=== PATIENT | male | born 1990 | race Caucasian/White ===

== ENCOUNTER 2024-02-05 21:08 | Inpatient (IN) | payer MEDICARE, SELFPAY ==
--- NOTE | ~2024-02-05 | XR_ITS ---
EXAMINATION: XR HAND/WRIST, LEFT CLINICAL INFORMATION: Ann/cut to dorsal radial aspect of the hand. COMPARISON: None available. TECHNIQUE: Four views of the left hand and wrist. FINDINGS: Avulsion fracture along the dorsal aspect of the base of the distal phalanx of the fifth digit with intra-articular extension, mild radial and ventral angulation of the distal phalanx and surrounding soft tissue swelling. Otherwise, unremarkable. XR/XR hand wrist LT IMPRESSION: Avulsion fracture of the distal phalanx of the fifth digit as above. Electronically signed by: Berenice Castano MD 02/06/2024 03:38 PM EDT
[2024-02-05 21:09] VITALS: BP 136/86; PULSE 94; RESP 18; TEMP 36.7; O2SAT 94; BMI 28.6
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
[2024-02-05 21:33] LABS: Basophils Percent Auto 0.3 % (0-2); Eosinophils Absolute Auto 0.1 X10*3/uL (0.0-0.4); Eosinophils Percent Auto 0.5 % (0-4); Hemoglobin 16.1 g/dl (14.0-18.0); Imm Gran Abs Auto 0.03 X10*3/uL (0.00-0.03); Imm Gran Pct Auto 0.2 % (0.0-0.4); Lymphocytes Percent Auto 22.9 % (20-40); MANUAL DIFF FLAG NO; Mean Corpuscular Hemoglobin 31.8 pg (27.0-33.0); Mean Corpuscular Volume 90.9 fL (80.0-98.0); Monocytes Absolute Auto 0.7 X10*3/uL (0.1-1.2); Monocytes Percent Auto 5.6 % (2-11); Neutrophils Absolute Auto 9.3 x10*3/uL (2.0-8.3); Neutrophils Percent Auto 70.5 % (45-73); Platelet Count 340 X10*3/uL (160-400); Red Blood Count 5.06 X10*6/uL (4.60-5.80); Red Cell Distribution Width 14.2 % (11.0-16.0); White Blood Count 13.1 X10*3/uL (4.8-10.8)
[2024-02-05 21:50] LABS: Alanine Aminotransferase 85 U/L (0-40); Albumin Level 4.7 g/dL (3.5-5.0); Alkaline Phosphatase 114 U/L (39-117); Anion Gap 22 (12-20); Aspartate Amino Transferase 67 U/L (5-37); Bilirubin Total 0.7 mg/dL (0.0-1.0); Blood Urea Nitrogen 11 mg/dL (9-16); Calcium 9.7 mg/dL (8.4-10.2); Carbon Dioxide 22 mmol/L (22-29); Chloride 103 mmol/L (96-108); Creatinine Clr Calc Pharmacy 131.4; Estimated Glomerular Filt Rate > 60; Ethanol 144 mg/dL; Glucose Random 70 mg/dL (60-115); Potassium 3.9 mmol/L (3.3-5.1); Sodium 143 mmol/L (135-145); Total Protein 7.3 g/dL (6.5-8.0)
--- NOTE | 2024-02-05 21:57 | MHC.EDTECH ---
Security did address change clerk with Pt and brought belongings to [facility] without communicating with RN or tech about belongings. This [facility], without documentation/Pt sticker in the binder. This tech asked Pt what he had with him, and Pt verbalized clothes, shoes, phone, [employer], wallet with 'some change' in it. Documented this in patient belongings. Maren RN also aware.
--- NOTE | 2024-02-05 21:57 | PC.NURSE ---
t/w went and introduced self to patient he states hes been on medicines but doesnty remember names and reports doesnt remember pharmacy. problems reflux and maybe high blood pressure
--- NOTE | 2024-02-05 22:02 | PC.NURSE ---
at this time security did not state what belongings pt had. belongings list completed per pt verbally.
[2024-02-05 22:05] LABS: Appearance Urine Cloudy; Color Urine Dark Yellow; Glucose Urine UA Negative (Negative); Leukocyte Esterase Urine Negative (Negative); Nitrite Urine Negative (Negative); PH 5.5 (5.0-9.0); Specific Gravity - Urine >= 1.030 (1.005-1.025); UMIC TRIGGER UACC YES; Urine Blood Negative (Negative); Urine Ketones 15 mg/dL (Negative); Urine Protein 30 (1+) mg/dL (Neg-Trace)
[2024-02-05 22:13] LABS: Amphetamine Screen Urine Not Detected (Not Detect); Barbiturates, Urine POSITIVE (Not Detect); Benzodiazepines Screen Urine POSITIVE (Not Detect); Buprenorphine Scr Not Detected (Not Detect); Cannabinoid Screen Urine POSITIVE (Not Detect); Cocaine Screen Urine Not Detected (Not Detect); Fentanyl, urine Not Detected (Not Detect); Methadone Screen, Urine Not Detected (Not Detect); Opiate Screen Urine Not Detected (Not Detect); Oxycodone Screen Urine Not Detected (Not Detect); Phencyclidine Screen Urine Not Detected (Not Detect)
[2024-02-05 22:20] LABS: Bacteria Urine None Seen (None Seen); Hyaline Casts Urine >20 /LPF (0-2); RBC Urine 0-2 /HPF (0-2); WBC Urine 0-5 /HPF (0-5)
--- NOTE | 2024-02-05 22:24 | MHC.EDTECH ---
pt was vigorously masturbating. pt states I've been outside a long time... rn aware.
--- NOTE | 2024-02-06 04:39 | ED_ITS ---
HPI - Psych General Chief Complaint: Psychiatric Symptoms Stated Complaint: ETOh, off schizo meds, cut on L hand Time Seen by Provider: 02/06/24 00:57 Source: patient Mode of arrival: EMS Limitations: no limitations History of Present Illness ED Provider: alfreda MCNEILL Narrative: Patient's history of schizophrenia was drinking alcohol feel depressed with SI superficial self inflicted wound on the left hand patient is homeless noncompliant to his medication Related Data Home Medications ?Medication ?Instructions ?Recorded ?Confirmed No Known Home Meds 02/05/24 02/05/24 Allergies Allergy/AdvReac Type Severity Reaction Status Date / Time No Known Allergies Allergy Verified 02/05/24 21:18 Review of Systems 2 Review of Systems: Yes all other systems are reviewed and are negative PMFSH Social History Social History Alcohol intake: current Smoked in Last 30 Days: No Use of substances other than those prescribed or required for medical reasons: No Do you have a plan to hurt others: No Plan Physical Exam 2 Vital Signs: Vital Signs: Last Vital Signs Temp 98.1 F 02/06/24 06:36 Pulse 97 02/06/24 06:36 Resp 18 02/06/24 06:36 BP 136/89 02/06/24 06:36 Pulse Ox 98 02/06/24 06:36 O2 Del Method Room Air 02/06/24 06:36 BMI result Body Mass Index 28.6 Appearance: Alert. Oriented X3. No acute distress. ETOH+ Eyes: PERRLA, No Nystagmus ENT: Pharynx normal. Oral Mucosa moist Neck: Normal inspection. Neck supple. CVS: Normal heart rate and rhythm. Pulses normal. Respiratory: No respiratory distress. Equal air entry bilateral, no wheezing/rales/rhonchi Abdomen: Soft and nontender. Bowel sounds are present, no mass palpable, no CVA tenderness Skin: Skin warm and dry. Normal skin color. Normal skin turgor. Extremities: No lower extremity edema. No calf tenderness superficial self- injury inflicted linear wound on the left hand at the base of the dorsum of the thumb no active bleeding psych: Unkept , says he is depressed and SI no hallucination or delusion Neuro: Oriented X 3. No motor deficit. No sensory deficit.No cerebellar signs , cranial nerves II-XII intact Medical Decision Making Medical Decision Making [facility] Narrative: Patient has schizoaffective disorder with alcohol use off medication will consult care team Lab Data [facility] Lab Attestation statement: I reviewed the patient's lab results. 02/05/24 21:28 02/05/24 21:28 Labs: Lab Results 02/05/24 02/05/24 Range/Units 21:28 21:58 WBC 13.1 H (4.8-10.8) X10*3/uL RBC 5.06 (4.60-5.80) X10*6/uL Hgb 16.1 (14.0-18.0) g/dl Hct 46.0 (42.0-52.0) % MCV 90.9 (80.0-98.0) fL MCH 31.8 (27.0-33.0) pg MCHC 35.0 (31.0-36.0) g/dl RDW 14.2 (11.0-16.0) % Plt Count 340 (160-400) X10*3/uL MPV 9.0 L (9.4-12.4) fL Immature Gran % (Auto) 0.2 (0.0-0.4) % Neut % (Auto) 70.5 (45-73) % Lymph % (Auto) 22.9 (20-40) % [place] % (Auto) 5.6 (2-11) % Eos % (Auto) 0.5 (0-4) % Baso % (Auto) 0.3 (0-2) % Lymph # (Auto) 3.0 (1.2-4.9) X10*3/uL [place] # (Auto) 0.7 (0.1-1.2) X10*3/uL Eos # (Auto) 0.1 (0.0-0.4) X10*3/uL Baso # (Auto) 0.0 (0.0-0.2) X10*3/uL Abs Immat Gran (auto) 0.03 (0.00-0.03) X10*3/uL Absolute Neuts (auto) 9.3 H (2.0-8.3) x10*3/uL Absolute Nucleated RBC 0.000 (0.0-0.012) X10*3/uL Nucleated RBC % (auto) 0.0 (0.0-0.2) /100WBC Sodium 143 (135-145) mmol/L Potassium 3.9 (3.3-5.1) mmol/L Chloride 103 (96-108) mmol/L Carbon Dioxide 22 (22-29) mmol/L Anion Gap 22 H (12-20) BUN 11 (9-16) mg/dL Creatinine 0.85 (0.5-1.4) mg/dL Estim Creat Clear Calc 131.4 Estimated GFR > 60 Random Glucose 70 (60-115) mg/dL Calcium 9.7 (8.4-10.2) mg/dL Total Bilirubin 0.7 (0.0-1.0) mg/dL AST 67 H (5-37) U/L ALT 85 H (0-40) U/L Alkaline Phosphatase 114 (39-117) U/L Total Protein 7.3 (6.5-8.0) g/dL Albumin 4.7 (3.5-5.0) g/dL Urine Color Dark Yellow Urine Appearance Cloudy Urine pH 5.5 (5.0-9.0) Ur Specific [place] >= 1.030 H (1.005-1.025) Urine Protein 30 (1+) H (Neg-Trace) mg/dL Urine Glucose (UA) Negative (Negative) mg/dL Urine Ketones 15 (Negative) mg/dL Urine Blood Negative (Negative) Urine Nitrite Negative (Negative) Ur Leukocyte Esterase Negative (Negative) Urine RBC 0-2 (0-2) /HPF Urine WBC 0-5 (0-5) /HPF Ur Squamous Epith Cells 6-10 (0-2) /HPF Urine Bacteria None Seen (None Seen) Hyaline Casts >20 (0-2) /LPF Urine Opiates Screen Not Detected (Not Detect) Ur Buprenorphine Scrn Not Detected (Not Detect) ng/mL Ur Oxycodone Screen Not Detected (Not Detect) ng/mL Urine Methadone Screen Not Detected (Not Detect) ng/mL Urine Fentanyl Screen Not Detected (Not Detect) Ur Barbiturates Screen POSITIVE H (Not Detect) Ur Phencyclidine Scrn Not Detected (Not Detect) Ur Amphetamines Screen Not Detected (Not Detect) U Benzodiazepines Scrn POSITIVE H (Not Detect) Urine Cocaine Screen Not Detected (Not Detect) U Marijuana (THC) Screen POSITIVE H (Not Detect) Ethyl Alcohol 144 mg/dL Discharge Plan Discharge Clinical Impression: Chronic schizophrenia, Depression, Suicidal ideation Patient Disposition: Still a Patient Prescriptions: No Action No Known Home Meds Interventions: [place]-Suicide Risk Severity Scale Last Done: 02/05/24 21:20
[2024-02-06 06:36] VITALS: BP 136/89; PULSE 97; RESP 18; TEMP 36.7; O2SAT 98
--- NOTE | 2024-02-06 08:41 | ECG_ITS ---
Test Reason : BH Admitt Blood Pressure : / mmHG Vent. Rate : 087 BPM Atrial Rate : 087 BPM P-R Int : 146 ms QRS Dur : 088 ms QT Int : 356 ms P-R-T Axes : 068 021 053 degrees QTc Int : 428 ms Normal sinus rhythm Normal ECG No previous ECGs available Referred By: Arnold Modi Electronically Signed By:Blade Guadalupe
--- NOTE | 2024-02-06 08:49 | MHC.CARE ---
Pt meets [employer] as he is endorsing SI with a plan to jump into a river or cut his wrists. He will be [employer] and is on a Section 12a which is in his chart. Dr[facility]
--- NOTE | 2024-02-06 09:15 | PC.NURSE ---
pt is a daily drinker. He has some hand tremors and his CIWA is 4. On his left hand there is a healing wound, it is red and not bleeding. Denies pain.
--- NOTE | 2024-02-06 09:46 | MHC.CARE ---
Financial services was emailed to meet with Pt regarding insurance as he is from out [place] and is uninsured.
--- NOTE | 2024-02-06 14:20 | PC.NURSE ---
Spoke to Jackeline RN admitting RN, explained POD RN is on break, Jackeline joyner phone report from this lead technical writer, all questions answered, Jackeline to come down and get patient momentarily.
[2024-02-06] MEDS: Bacitracin Oint 0.9 GM PACKET 1 APPL TOPICAL (14:25)
[2024-02-06 15:00] VITALS: BP 129/80; PULSE 87; TEMP 36.6; O2SAT 96
[2024-02-06 16:01] VITALS: BMI 27.0
[2024-02-06] MEDS: LORazepam 1 MG TABLET PO (16:14)
[2024-02-06] MEDS: hydrOXYzine HCL 25 MG TABLET PO (16:14)
[2024-02-06] MEDS: Acetaminophen 325 MG TABLET 650 MG PO (16:14)
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
[2024-02-06 19:45] VITALS: BP 113/60; PULSE 95; RESP 18; TEMP 36.4; O2SAT 98
[2024-02-07] MEDS: LORazepam 1 MG TABLET PO ×4 (03:55→20:28)
[2024-02-07 08:00] VITALS: BP 121/78; PULSE 84; RESP 16; TEMP 36.8; O2SAT 99
[2024-02-07] MEDS: Thiamine HCL 100 MG TABLET PO (09:28)
[2024-02-07] MEDS: Multivitamin TABLET 1 TAB PO (09:28)
[2024-02-07] MEDS: Folic Acid 1 MG TABLET PO (09:28)
[2024-02-07 09:30] LABS: Estimated Average Glucose 88 mg/dL; Hemoglobin A1C 111.1702 umol/L; Hemoglobin A1c % 4.7 % (<6.0)
[2024-02-07 09:34] LABS: Cholesterol 223 mg/dL (<200); HDL Cholesterol 83 mg/dL (>40); LDL Cholesterol Calculated 103 mg/dL (<100); Triglycerides 185 mg/dL (<150)
[2024-02-07 09:52] LABS: Free T4 (Free Thyroxine) 0.98 ng/dL (0.71-1.85); Thyroid Stimulating Hormone 0.53 uIU/mL (0.32-4.0)
[2024-02-07 10:03] LABS: Folate 12.9 ng/mL (> or = 4.0); Vitamin B12 839 pg/mL (200-900)
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
[2024-02-07] MEDS: LORazepam 1 MG TABLET 2 MG PO (18:18)
[2024-02-07] MEDS: Magnesium Hydrox/Alum Hydrox 30 ML ORAL.SUSP PO (18:26)
[2024-02-07] MEDS: Ondansetron ODT 4 MG TAB.RAPDIS TRANSLINGU (18:49)
[2024-02-07 20:00] VITALS: BP 150/73; PULSE 81; RESP 15; TEMP 36.8; O2SAT 81
[2024-02-07] MEDS: OLANZapine 10 MG TABLET PO (20:28)
[2024-02-07] MEDS: clonazePAM 1 MG TABLET PO (20:28)
[2024-02-07] MEDS: traZODone HCL 50 MG TABLET PO (20:28)
[2024-02-07] MEDS: Divalproex Sodium ER 500 MG TAB.ER.24H PO (20:29)
[2024-02-07 22:00] VITALS: RESP 14
[2024-02-07 23:59] VITALS: RESP 14
[2024-02-08 06:35] VITALS: BP 133/61; PULSE 60; RESP 14; TEMP 36.8; O2SAT 96
[2024-02-08] MEDS: Omeprazole 20 MG CAPSULE.DR PO (06:45)
[2024-02-08 08:40] VITALS: BP 139/67; PULSE 98; RESP 16; TEMP 36.7; O2SAT 97
[2024-02-08] MEDS: Folic Acid 1 MG TABLET PO (09:16)
[2024-02-08] MEDS: clonazePAM 1 MG TABLET PO ×2 (09:16→21:10)
[2024-02-08] MEDS: FLUoxetine HCl Oral Solution 20 MG/5 ML SOLUTION 10 MG PO (09:16)
[2024-02-08] MEDS: OLANZapine 10 MG TABLET PO ×2 (09:16→21:10)
[2024-02-08] MEDS: amLODIPine Besylate 5 MG TABLET PO (09:16)
[2024-02-08] MEDS: Multivitamin TABLET 1 TAB PO (09:16)
[2024-02-08] MEDS: Thiamine HCL 100 MG TABLET PO (09:16)
--- NOTE | 2024-02-08 11:03 | P.PNPSI_ITS ---
Subjective Subjective Date of Service: 02/08/24 Reason For Visit: schizophrenia Interim History: Patient seen and discussed with RN. Patient is isolative. He remains in room majority of time. He denies withdrawals. Reports depression. Disheveled. Unkempt. Reported AH yesterday denied any today. Review of Systems Review of Systems Yes all other systems are reviewed and are negative Mental Status Exam Mental Status Exam Patient Appearance: Fatigued Patient Orientation: Person, Place and Situation Level of Consciousness: Alert Patient Behavior: Appropriate, Talkative, Cooperative and Good Eye Contact Mood Description: Depressed Affect Description: Flat Patient Cognition Impaired: No Ability to Follow Directions: Good Speech Pattern: Spontaneous Speech Memory Description: Episodic Impaired Diagnostics Vital Signs (24Hr): Vital Signs - 24 hr 02/07/24 20:00 02/07/24 22:00 02/07/24 23:59 Temperature 98.3 F Pulse Rate 81 Respiratory Rate 15 14 14 Blood Pressure 150/73 H Pulse Oximetry 81 L Oxygen Delivery Method 02/08/24 06:35 02/08/24 08:40 Temperature 98.3 F 98.1 F Pulse Rate 60 98 Respiratory Rate 14 16 Blood Pressure 133/61 139/67 Pulse Oximetry 96 97 Oxygen Delivery Method Room Air BMI result Body Mass Index 27.0 Labs 02/05/24 21:28 02/05/24 21:28 Labs: Laboratory Results - last 48 hr 02/07/24 09:02 Estimat Average Glucose 88 Hemoglobin A1c % 4.7 Triglycerides 185 H Cholesterol 223 H LDL Cholesterol, Calc 103 H HDL Cholesterol 83 Vitamin B12 839 Folate 12.9 TSH 0.53 Free T4 0.98 Imaging Radiology Impressions: ITS Impressions Hand/Wrist X-Ray 02/06/24 11:11 IMPRESSION: Avulsion fracture of the distal phalanx of the fifth digit as above. Electronically signed by: Berenice Castano MD 02/06/2024 03:38 PM EDT RP Medications Medications Current Medications Acetaminophen (Acetaminophen 325 Mg Tablet) 650 mg PO Q6H PRN PRN Reason: Headache/Pain Mild Scale (1-3) Last Admin: 02/06/24 16:14 Dose: 650 mg Al Hydroxide/Mg Hydroxide (Magnesium Hydrox/Alum Hydrox 30 Ml Oral.Susp) 30 ml PO Q6H PRN PRN Reason: Heartburn/Nausea Last Admin: 02/07/24 18:26 Dose: 30 ml Amlodipine Besylate (Amlodipine Besylate 5 Mg Tablet) 5 mg PO DAILY [facility]; Protocol Last Admin: 02/08/24 09:16 Dose: 5 mg Clonazepam (Clonazepam 1 Mg Tablet) 1 mg PO BID [facility] Last Admin: 02/08/24 09:16 Dose: 1 mg Divalproex Sodium (Divalproex Sodium Er 500 Mg Tab.Er.24h) 500 mg PO BEDTIME [facility] Last Admin: 02/07/24 20:29 Dose: 500 mg Fluoxetine HCl (Fluoxetine Hcl 10 Mg Capsule) 10 mg PO DAILY [facility] Folic Acid (Folic Acid 1 Mg Tablet) 1 mg PO DAILY [facility] Last Admin: 02/08/24 09:16 Dose: 1 mg Hydroxyzine HCl (Hydroxyzine Hcl 25 Mg Tablet) 25 mg PO Q6H PRN PRN Reason: Anxiety Last Admin: 02/06/24 16:14 Dose: 25 mg Lorazepam (Lorazepam 1 Mg Tablet) 1 mg PO Q2H PRN PRN Reason: ciwa 6-10 Last Admin: 02/07/24 20:28 Dose: 1 mg Lorazepam (Lorazepam 1 Mg Tablet) 2 mg PO Q2H PRN PRN Reason: CIWA 11+ Last Admin: 02/07/24 18:18 Dose: 2 mg Magnesium Hydroxide (Milk Of Magnesia 30 Ml Oral.Susp) 30 ml PO DAILY PRN PRN Reason: Constipation Multivitamins/Vitamin C (Multivitamin Tablet) 1 tab PO DAILY [facility] Last Admin: 02/08/24 09:16 Dose: 1 tab Nicotine (Nicotine 21 Mg Patch.Td24) 21 mg TRANSDERMA DAILY PRN PRN Reason: nicotine cravings Nicotine Polacrilex (Nicotine Polacrilex 2 Mg Gum) 4 mg BUCCAL Q2H PRN PRN Reason: Nicotine Cravings Olanzapine (Olanzapine 5 Mg Tablet) 5 mg PO TID PRN PRN Reason: agitation, psychosis Olanzapine (Olanzapine 10 Mg Tablet) 10 mg PO BID [facility] Last Admin: 02/08/24 09:16 Dose: 10 mg Omeprazole (Omeprazole 20 Mg Capsule.Dr) 20 mg PO DAILY@0630 [facility] Last Admin: 02/08/24 06:45 Dose: 20 mg Ondansetron HCl (Ondansetron Odt 4 Mg Tab.Rapdis) 4 mg TRANSLINGU Q6H PRN PRN Reason: Nausea and Vomiting Last Admin: 02/07/24 18:49 Dose: 4 mg Thiamine HCl (Thiamine Hcl 100 Mg Tablet) 100 mg PO DAILY [facility] Last Admin: 02/08/24 09:16 Dose: 100 mg Trazodone HCl (Trazodone Hcl 50 Mg Tablet) 50 mg PO BEDTIME MRX1 PRN PRN Reason: Insomnia Last Admin: 02/07/24 20:28 Dose: 50 mg Allergies Allergies Allergy/AdvReac Type Severity Reaction Status Date / Time No Known Allergies Allergy Verified 02/05/24 21:18 Assessment & Plan Assessment & Plan (1) Chronic schizophrenia: Status: Acute Code(s): F20.9 - Schizophrenia, unspecified (2) Depression: Status: Acute Code(s): F32.A - Depression, unspecified (3) Suicidal ideation: Status: Acute Code(s): R45.851 - Suicidal ideations (4) Alcohol use disorder: Status: Acute Code(s): F10.90 - Alcohol use, unspecified, uncomplicated (5) Homelessness: Status: Acute Code(s): Z59.00 - Homelessness unspecified (6) PTSD (post-traumatic stress disorder): Status: Acute Code(s): F43.10 - Post-traumatic stress disorder, unspecified (7) Cannabis abuse: Status: Acute Code(s): F12.10 - Cannabis abuse, uncomplicated Plan Schizophrenia, R/O schizoaffective disorder, bipolar type, PTSD, Alcohol and Cannabis use disorder. Plan: Admit, CV, 15 minute checks. Collateral contact if available Diagnostics as needed Encourage milieu participation Re-establish regime pt reports to be effective-Olanzapine, Fluoxetine, Depakote, Klonopin, Omeprazole, Norvasc. Aftercare planning 02/07: Continue current management and treatment plan. Reason for continued inpatient stay Substantial Risk for: inability to function and rapid decompensation Time Spent With Patient Time: Total time managing care of this patient today ____ minutes.
[2024-02-08 20:00] VITALS: BP 145/73; PULSE 99; TEMP 37.7; O2SAT 94
[2024-02-08] MEDS: Divalproex Sodium ER 500 MG TAB.ER.24H PO (21:10)
[2024-02-08] MEDS: traZODone HCL 50 MG TABLET PO (21:10)
[2024-02-08] MEDS: LORazepam 1 MG TABLET PO (21:16)
[2024-02-09] VITALS: BP 130/73; PULSE 97; TEMP 36.7; O2SAT 96
[2024-02-09] MEDS: Omeprazole 20 MG CAPSULE.DR PO (06:58)
[2024-02-09] MEDS: FLUoxetine HCl 10 MG CAPSULE PO (08:31)
[2024-02-09] MEDS: Multivitamin TABLET 1 TAB PO (08:31)
[2024-02-09] MEDS: Folic Acid 1 MG TABLET PO (08:31)
[2024-02-09] MEDS: Thiamine HCL 100 MG TABLET PO (08:31)
[2024-02-09] MEDS: amLODIPine Besylate 5 MG TABLET PO (08:31)
[2024-02-09] MEDS: clonazePAM 1 MG TABLET PO ×2 (08:31→20:19)
[2024-02-09] MEDS: OLANZapine 10 MG TABLET PO ×2 (08:31→20:19)
[2024-02-09 08:33] VITALS: BP 133/87; PULSE 90; RESP 16; TEMP 36.8; O2SAT 97
--- NOTE | 2024-02-09 11:31 | HO.PSYCHPN ---
Subjective Subjective Date of Service: 02/09/24 Reason For Visit: schizophrenia Interim History: Patient seen and discussed with RN. Patient is isolative. He remains in room majority of time. He denies withdrawals. Reports depression. Disheveled. Unkempt. Reported AH yesterday denied any today. Review of Systems Review of Systems Yes all other systems are reviewed and are negative Mental Status Exam Mental Status Exam Patient Appearance: Fatigued Patient Orientation: Person, Place and Situation Level of Consciousness: Alert Patient Behavior: Appropriate, Talkative, Cooperative and Good Eye Contact Mood Description: Depressed Affect Description: Flat Patient Cognition Impaired: No Ability to Follow Directions: Good Speech Pattern: Spontaneous Speech Memory Description: Episodic Impaired Diagnostics Vital Signs (24Hr): Vital Signs - 24 hr 02/08/24 20:00 02/09/24 00:00 02/09/24 08:33 Temperature 99.8 F 98.1 F 98.3 F Pulse Rate 99 97 90 Respiratory Rate 16 Blood Pressure 145/73 H 130/73 133/87 Pulse Oximetry 94 96 97 Oxygen Delivery Method Room Air Room Air Room Air BMI result Body Mass Index 27.0 Labs 02/05/24 21:28 02/05/24 21:28 Imaging Radiology Impressions: ITS Impressions Hand/Wrist X-Ray 02/06/24 11:11 IMPRESSION: Avulsion fracture of the distal phalanx of the fifth digit as above. Electronically signed by: Berenice Castano MD 02/06/2024 03:38 PM EDT RP Medications Medications Current Medications Acetaminophen (Acetaminophen 325 Mg Tablet) 650 mg PO Q6H PRN PRN Reason: Headache/Pain Mild Scale (1-3) Last Admin: 02/06/24 16:14 Dose: 650 mg Al Hydroxide/Mg Hydroxide (Magnesium Hydrox/Alum Hydrox 30 Ml Oral.Susp) 30 ml PO Q6H PRN PRN Reason: Heartburn/Nausea Last Admin: 02/07/24 18:26 Dose: 30 ml Amlodipine Besylate (Amlodipine Besylate 5 Mg Tablet) 5 mg PO DAILY [facility]; Protocol Last Admin: 02/09/24 08:31 Dose: 5 mg Clonazepam (Clonazepam 1 Mg Tablet) 1 mg PO BID [facility] Last Admin: 02/09/24 08:31 Dose: 1 mg Divalproex Sodium (Divalproex Sodium Er 500 Mg Tab.Er.24h) 500 mg PO BEDTIME [facility] Last Admin: 02/08/24 21:10 Dose: 500 mg Fluoxetine HCl (Fluoxetine Hcl 10 Mg Capsule) 10 mg PO DAILY [facility] Last Admin: 02/09/24 08:31 Dose: 10 mg Folic Acid (Folic Acid 1 Mg Tablet) 1 mg PO DAILY [facility] Last Admin: 02/09/24 08:31 Dose: 1 mg Hydroxyzine HCl (Hydroxyzine Hcl 25 Mg Tablet) 25 mg PO Q6H PRN PRN Reason: Anxiety Last Admin: 02/06/24 16:14 Dose: 25 mg Lorazepam (Lorazepam 1 Mg Tablet) 1 mg PO Q4H PRN PRN Reason: ciwa 6-10 Last Admin: 02/08/24 21:16 Dose: 1 mg Lorazepam (Lorazepam 1 Mg Tablet) 2 mg PO Q4H PRN PRN Reason: CIWA 11+ Magnesium Hydroxide (Milk Of Magnesia 30 Ml Oral.Susp) 30 ml PO DAILY PRN PRN Reason: Constipation Multivitamins/Vitamin C (Multivitamin Tablet) 1 tab PO DAILY [facility] Last Admin: 02/09/24 08:31 Dose: 1 tab Nicotine (Nicotine 21 Mg Patch.Td24) 21 mg TRANSDERMA DAILY PRN PRN Reason: nicotine cravings Nicotine Polacrilex (Nicotine Polacrilex 2 Mg Gum) 4 mg BUCCAL Q2H PRN PRN Reason: Nicotine Cravings Olanzapine (Olanzapine 5 Mg Tablet) 5 mg PO TID PRN PRN Reason: agitation, psychosis Olanzapine (Olanzapine 10 Mg Tablet) 10 mg PO BID [facility] Last Admin: 02/09/24 08:31 Dose: 10 mg Omeprazole (Omeprazole 20 Mg Capsule.Dr) 20 mg PO DAILY@0630 [facility] Last Admin: 02/09/24 06:58 Dose: 20 mg Ondansetron HCl (Ondansetron Odt 4 Mg Tab.Rapdis) 4 mg TRANSLINGU Q6H PRN PRN Reason: Nausea and Vomiting Last Admin: 02/07/24 18:49 Dose: 4 mg Thiamine HCl (Thiamine Hcl 100 Mg Tablet) 100 mg PO DAILY [facility] Last Admin: 02/09/24 08:31 Dose: 100 mg Trazodone HCl (Trazodone Hcl 50 Mg Tablet) 50 mg PO BEDTIME MRX1 PRN PRN Reason: Insomnia Last Admin: 02/08/24 21:10 Dose: 50 mg Allergies Allergies Allergy/AdvReac Type Severity Reaction Status Date / Time No Known Allergies Allergy Verified 02/05/24 21:18 Assessment & Plan Assessment & Plan (1) Chronic schizophrenia: Status: Acute Code(s): F20.9 - Schizophrenia, unspecified (2) Depression: Status: Acute Code(s): F32.A - Depression, unspecified (3) Suicidal ideation: Status: Acute Code(s): R45.851 - Suicidal ideations (4) Alcohol use disorder: Status: Acute Code(s): F10.90 - Alcohol use, unspecified, uncomplicated (5) Homelessness: Status: Acute Code(s): Z59.00 - Homelessness unspecified (6) PTSD (post-traumatic stress disorder): Status: Acute Code(s): F43.10 - Post-traumatic stress disorder, unspecified (7) Cannabis abuse: Status: Acute Code(s): F12.10 - Cannabis abuse, uncomplicated Plan Schizophrenia, R/O schizoaffective disorder, bipolar type, PTSD, Alcohol and Cannabis use disorder. Plan: Admit, CV, 15 minute checks. Collateral contact if available Diagnostics as needed Encourage milieu participation Re-establish regime pt reports to be effective-Olanzapine, Fluoxetine, Depakote, Klonopin, Omeprazole, Norvasc. Aftercare planning 02/07: Continue current management and treatment plan. 02/08: Continue current management and treatment plan. Reason for continued inpatient stay Substantial Risk for: inability to function and rapid decompensation Time Spent With Patient Time: Total time managing care of this patient today ____ minutes.
[2024-02-09 19:56] VITALS: BP 133/70; PULSE 99; RESP 14; TEMP 37.1; O2SAT 98
[2024-02-09] MEDS: Divalproex Sodium ER 500 MG TAB.ER.24H PO (20:19)
[2024-02-09] MEDS: traZODone HCL 50 MG TABLET PO (20:19)
[2024-02-10] MEDS: Omeprazole 20 MG CAPSULE.DR PO (07:06)
[2024-02-10 08:00] VITALS: BP 128/71; PULSE 76; RESP 16; TEMP 36.4; O2SAT 99
[2024-02-10 08:42] VITALS: BP 128/71
[2024-02-10] MEDS: FLUoxetine HCl 10 MG CAPSULE PO (08:42)
[2024-02-10] MEDS: Folic Acid 1 MG TABLET PO (08:42)
[2024-02-10] MEDS: Thiamine HCL 100 MG TABLET PO (08:42)
[2024-02-10] MEDS: amLODIPine Besylate 5 MG TABLET PO (08:42)
[2024-02-10] MEDS: Multivitamin TABLET 1 TAB PO (08:42)
[2024-02-10] MEDS: OLANZapine 10 MG TABLET PO (08:43)
[2024-02-10] MEDS: clonazePAM 1 MG TABLET PO ×2 (08:43→20:54)
--- NOTE | 2024-02-10 09:58 | HO.PSYCHPN ---
Subjective Subjective Date of Service: 02/10/24 Reason For Visit: schizophrenia Subjective Notes: Conditional Voluntary Healthcare Proxy: No Guardianship: No Medical Problems Affecting Mental Status: No Interim History: Tolerating medication re-titration. Denies adverse effects and prepared to continue. Isolative, guarded when seen today, Continues with active sx of psychosis, flat, withdrawn from milieu Denies SI/HI/ +AH, -VH. Non attentive to ADL's. Medication Compliance: Yes Side effects from medications: No Attending Groups: No Review of Systems Acute medical concerns: No Review of Systems Review of Systems Yes all other systems are reviewed and are negative Mental Status Exam Mental Status Exam Patient Appearance: Fatigued Patient Orientation: Person, Place and Situation Level of Consciousness: Alert Patient Behavior: Appropriate, Talkative, Cooperative and Good Eye Contact Mood Description: Depressed Affect Description: Flat Patient Cognition Impaired: No Ability to Follow Directions: Good Speech Pattern: Spontaneous Speech Memory Description: Episodic Impaired Hallucinations: Auditory Delusions: Paranoid Ideation and Present Perceptual Disturbances: Derealization Thought Process: Rumination Thought Content: positive for Circumstantial, positive for Perseveration and positive for Preoccupation Depressive Symptoms: Increased Anxiety and Unhappiness Judgement: Fair Diagnostics Vital Signs (24Hr): Vital Signs - 24 hr 02/09/24 19:56 02/10/24 08:00 02/10/24 08:42 Temperature 98.7 F 97.6 F Pulse Rate 99 76 Respiratory Rate 14 16 Blood Pressure 133/70 128/71 128/71 Pulse Oximetry 98 99 Oxygen Delivery Method Room Air BMI result Body Mass Index 27.0 Labs 02/05/24 21:28 02/05/24 21:28 Imaging Radiology Impressions: ITS Impressions Hand/Wrist X-Ray 02/06/24 11:11 IMPRESSION: Avulsion fracture of the distal phalanx of the fifth digit as above. Electronically signed by: Berenice Castano MD 02/06/2024 03:38 PM EDT Medications Medications Current Medications Acetaminophen (Acetaminophen 325 Mg Tablet) 650 mg PO Q6H PRN PRN Reason: Headache/Pain Mild Scale (1-3) Last Admin: 02/06/24 16:14 Dose: 650 mg Al Hydroxide/Mg Hydroxide (Magnesium Hydrox/Alum Hydrox 30 Ml Oral.Susp) 30 ml PO Q6H PRN PRN Reason: Heartburn/Nausea Last Admin: 02/07/24 18:26 Dose: 30 ml Amlodipine Besylate (Amlodipine Besylate 5 Mg Tablet) 5 mg PO DAILY [facility]; Protocol Last Admin: 02/10/24 08:42 Dose: 5 mg Clonazepam (Clonazepam 1 Mg Tablet) 1 mg PO BID [facility] Last Admin: 02/10/24 08:43 Dose: 1 mg Divalproex Sodium (Divalproex Sodium Er 500 Mg Tab.Er.24h) 500 mg PO BEDTIME [facility] Last Admin: 02/09/24 20:19 Dose: 500 mg Fluoxetine HCl (Fluoxetine Hcl 10 Mg Capsule) 10 mg PO DAILY [facility] Last Admin: 02/10/24 08:42 Dose: 10 mg Folic Acid (Folic Acid 1 Mg Tablet) 1 mg PO DAILY [facility] Last Admin: 02/10/24 08:42 Dose: 1 mg Hydroxyzine HCl (Hydroxyzine Hcl 25 Mg Tablet) 25 mg PO Q6H PRN PRN Reason: Anxiety Last Admin: 02/06/24 16:14 Dose: 25 mg Lorazepam (Lorazepam 1 Mg Tablet) 1 mg PO Q4H PRN PRN Reason: ciwa 6-10 Last Admin: 02/08/24 21:16 Dose: 1 mg Lorazepam (Lorazepam 1 Mg Tablet) 2 mg PO Q4H PRN PRN Reason: CIWA 11+ Magnesium Hydroxide (Milk Of Magnesia 30 Ml Oral.Susp) 30 ml PO DAILY PRN PRN Reason: Constipation Multivitamins/Vitamin C (Multivitamin Tablet) 1 tab PO DAILY [facility] Last Admin: 02/10/24 08:42 Dose: 1 tab Nicotine (Nicotine 21 Mg Patch.Td24) 21 mg TRANSDERMA DAILY PRN PRN Reason: nicotine cravings Nicotine Polacrilex (Nicotine Polacrilex 2 Mg Gum) 4 mg BUCCAL Q2H PRN PRN Reason: Nicotine Cravings Olanzapine (Olanzapine 5 Mg Tablet) 5 mg PO TID PRN PRN Reason: agitation, psychosis Olanzapine (Olanzapine 10 Mg Tablet) 10 mg PO BID [facility] Last Admin: 02/10/24 08:43 Dose: 10 mg Omeprazole (Omeprazole 20 Mg Capsule.Dr) 20 mg PO DAILY@0630 [facility] Last Admin: 02/10/24 07:06 Dose: 20 mg Ondansetron HCl (Ondansetron Odt 4 Mg Tab.Rapdis) 4 mg TRANSLINGU Q6H PRN PRN Reason: Nausea and Vomiting Last Admin: 02/07/24 18:49 Dose: 4 mg Thiamine HCl (Thiamine Hcl 100 Mg Tablet) 100 mg PO DAILY [facility] Last Admin: 02/10/24 08:42 Dose: 100 mg Trazodone HCl (Trazodone Hcl 50 Mg Tablet) 50 mg PO BEDTIME MRX1 PRN PRN Reason: Insomnia Last Admin: 02/09/24 20:19 Dose: 50 mg Allergies Allergies Allergy/AdvReac Type Severity Reaction Status Date / Time No Known Allergies Allergy Verified 02/05/24 21:18 Assessment & Plan Assessment & Plan (1) Chronic schizophrenia: Status: Acute Code(s): F20.9 - Schizophrenia, unspecified (2) Depression: Status: Acute Code(s): F32.A - Depression, unspecified (3) Suicidal ideation: Status: Acute Code(s): R45.851 - Suicidal ideations (4) Alcohol use disorder: Status: Acute Code(s): F10.90 - Alcohol use, unspecified, uncomplicated (5) Homelessness: Status: Acute Code(s): Z59.00 - Homelessness unspecified (6) PTSD (post-traumatic stress disorder): Status: Acute Code(s): F43.10 - Post-traumatic stress disorder, unspecified (7) Cannabis abuse: Status: Acute Code(s): F12.10 - Cannabis abuse, uncomplicated Plan Schizophrenia, R/O schizoaffective disorder, bipolar type, PTSD, Alcohol and Cannabis use disorder. Plan: Admit, CV, 15 minute checks. Collateral contact if available Diagnostics as needed Encourage milieu participation Re-establish regime pt reports to be effective-Olanzapine, Fluoxetine, Depakote, Klonopin, Omeprazole, Norvasc. Aftercare planning 02/07: Continue current management and treatment plan. 02/08: Continue current management and treatment plan. 02/09: Increase Depakote to 1000 mg ER HS Increase Olanzapine to 15 mg bid Reason for continued inpatient stay Substantial Risk for: rapid decompensation Time Spent With Patient Time: Total time managing care of this patient today ____ minutes.
[2024-02-10 19:51] VITALS: BP 130/72; PULSE 82; TEMP 36.7; O2SAT 98
[2024-02-10] MEDS: OLANZapine 7.5 MG TABLET 15 MG PO (20:55)
[2024-02-10] MEDS: Divalproex Sodium ER 500 MG TAB.ER.24H 1000 MG PO (20:55)
[2024-02-10] MEDS: traZODone HCL 50 MG TABLET PO (20:55)
[2024-02-11 08:30] VITALS: BP 124/70; PULSE 76; TEMP 36.8; O2SAT 98
[2024-02-11] MEDS: FLUoxetine HCl 10 MG CAPSULE PO (08:46)
[2024-02-11] MEDS: Folic Acid 1 MG TABLET PO (08:46)
[2024-02-11 08:47] VITALS: BP 124/70
[2024-02-11] MEDS: Thiamine HCL 100 MG TABLET PO (08:47)
[2024-02-11] MEDS: amLODIPine Besylate 5 MG TABLET PO (08:47)
[2024-02-11] MEDS: clonazePAM 1 MG TABLET PO ×2 (08:47→20:53)
[2024-02-11] MEDS: OLANZapine 7.5 MG TABLET 15 MG PO ×2 (08:47→20:52)
[2024-02-11] MEDS: Omeprazole 20 MG CAPSULE.DR PO (08:47)
[2024-02-11] MEDS: Multivitamin TABLET 1 TAB PO (08:48)
--- NOTE | 2024-02-11 16:10 | HO.PSYCHPN ---
Subjective Subjective Date of Service: 02/11/24 Reason For Visit: schizophrenia Subjective Notes: Conditional Voluntary Healthcare Proxy: No Guardianship: No Medical Problems Affecting Mental Status: No Interim History: Pt tells team he would like to discharge on 02/13. He plans to go to a hotel to plan his next travel. He is unsure if he will go back to [place]. He did tw team about available housing, was offered DM application, but declined at this time. He denies SI/HI/AH/VH and reports he is tolerating regime without adverse effects. Medication Compliance: Yes Side effects from medications: No Attending Groups: No Review of Systems Acute medical concerns: No Review of Systems Review of Systems Yes all other systems are reviewed and are negative Mental Status Exam Mental Status Exam Patient Appearance: Fatigued Patient Orientation: Person, Place and Situation Level of Consciousness: Alert Patient Behavior: Appropriate, Talkative, Cooperative and Good Eye Contact Mood Description: Depressed Affect Description: Flat Patient Cognition Impaired: No Ability to Follow Directions: Good Speech Pattern: Spontaneous Speech Memory Description: Episodic Impaired Hallucinations: Auditory Delusions: Paranoid Ideation and Present Perceptual Disturbances: Derealization Thought Process: Rumination Thought Content: positive for Circumstantial, positive for Perseveration and positive for Preoccupation Depressive Symptoms: Increased Anxiety and Unhappiness Judgement: Fair Diagnostics Vital Signs (24Hr): Vital Signs - 24 hr 02/10/24 19:51 02/11/24 08:30 02/11/24 08:47 Temperature 98.1 F 98.3 F Pulse Rate 82 76 Blood Pressure 130/72 124/70 124/70 Pulse Oximetry 98 98 Oxygen Delivery Method Room Air Room Air BMI result Body Mass Index 27.0 Labs 02/05/24 21:28 02/05/24 21:28 Imaging Radiology Impressions: ITS Impressions Hand/Wrist X-Ray 02/06/24 11:11 IMPRESSION: Avulsion fracture of the distal phalanx of the fifth digit as above. Electronically signed by: Berenice Castano MD 02/06/2024 03:38 PM EDT RP Medications Medications Current Medications Acetaminophen (Acetaminophen 325 Mg Tablet) 650 mg PO Q6H PRN PRN Reason: Headache/Pain Mild Scale (1-3) Last Admin: 02/06/24 16:14 Dose: 650 mg Al Hydroxide/Mg Hydroxide (Magnesium Hydrox/Alum Hydrox 30 Ml Oral.Susp) 30 ml PO Q6H PRN PRN Reason: Heartburn/Nausea Last Admin: 02/07/24 18:26 Dose: 30 ml Amlodipine Besylate (Amlodipine Besylate 5 Mg Tablet) 5 mg PO DAILY [facility]; Protocol Last Admin: 02/11/24 08:47 Dose: 5 mg Clonazepam (Clonazepam 1 Mg Tablet) 1 mg PO BID [facility] Last Admin: 02/11/24 08:47 Dose: 1 mg Divalproex Sodium (Divalproex Sodium Er 500 Mg Tab.Er.24h) 1,000 mg PO BEDTIME [facility] Last Admin: 02/10/24 20:55 Dose: 1,000 mg Fluoxetine HCl (Fluoxetine Hcl 10 Mg Capsule) 10 mg PO DAILY [facility] Last Admin: 02/11/24 08:46 Dose: 10 mg Folic Acid (Folic Acid 1 Mg Tablet) 1 mg PO DAILY [facility] Last Admin: 02/11/24 08:46 Dose: 1 mg Hydroxyzine HCl (Hydroxyzine Hcl 25 Mg Tablet) 25 mg PO Q6H PRN PRN Reason: Anxiety Last Admin: 02/06/24 16:14 Dose: 25 mg Lorazepam (Lorazepam 1 Mg Tablet) 1 mg PO Q4H PRN PRN Reason: ciwa 6-10 Last Admin: 02/08/24 21:16 Dose: 1 mg Lorazepam (Lorazepam 1 Mg Tablet) 2 mg PO Q4H PRN PRN Reason: CIWA 11+ Magnesium Hydroxide (Milk Of Magnesia 30 Ml Oral.Susp) 30 ml PO DAILY PRN PRN Reason: Constipation Multivitamins/Vitamin C (Multivitamin Tablet) 1 tab PO DAILY [facility] Last Admin: 02/11/24 08:48 Dose: 1 tab Nicotine (Nicotine 21 Mg Patch.Td24) 21 mg TRANSDERMA DAILY PRN PRN Reason: nicotine cravings Nicotine Polacrilex (Nicotine Polacrilex 2 Mg Gum) 4 mg BUCCAL Q2H PRN PRN Reason: Nicotine Cravings Olanzapine (Olanzapine 5 Mg Tablet) 5 mg PO TID PRN PRN Reason: agitation, psychosis Olanzapine (Olanzapine 7.5 Mg Tablet) 15 mg PO BID [facility] Last Admin: 02/11/24 08:47 Dose: 15 mg Omeprazole (Omeprazole 20 Mg Capsule.Dr) 20 mg PO DAILY@0630 [facility] Last Admin: 02/11/24 08:47 Dose: 20 mg Ondansetron HCl (Ondansetron Odt 4 Mg Tab.Rapdis) 4 mg TRANSLINGU Q6H PRN PRN Reason: Nausea and Vomiting Last Admin: 02/07/24 18:49 Dose: 4 mg Thiamine HCl (Thiamine Hcl 100 Mg Tablet) 100 mg PO DAILY [facility] Last Admin: 02/11/24 08:47 Dose: 100 mg Trazodone HCl (Trazodone Hcl 50 Mg Tablet) 50 mg PO BEDTIME MRX1 PRN PRN Reason: Insomnia Last Admin: 02/10/24 20:55 Dose: 50 mg Allergies Allergies Allergy/AdvReac Type Severity Reaction Status Date / Time No Known Allergies Allergy Verified 02/05/24 21:18 Assessment & Plan Assessment & Plan (1) Chronic schizophrenia: Status: Acute Code(s): F20.9 - Schizophrenia, unspecified (2) Depression: Status: Acute Code(s): F32.A - Depression, unspecified (3) Suicidal ideation: Status: Acute Code(s): R45.851 - Suicidal ideations (4) Alcohol use disorder: Status: Acute Code(s): F10.90 - Alcohol use, unspecified, uncomplicated (5) Homelessness: Status: Acute Code(s): Z59.00 - Homelessness unspecified (6) PTSD (post-traumatic stress disorder): Status: Acute Code(s): F43.10 - Post-traumatic stress disorder, unspecified (7) Cannabis abuse: Status: Acute Code(s): F12.10 - Cannabis abuse, uncomplicated Plan Schizophrenia, R/O schizoaffective disorder, bipolar type, PTSD, Alcohol and Cannabis use disorder. Plan: Admit, CV, 15 minute checks. Collateral contact if available Diagnostics as needed Encourage milieu participation Re-establish regime pt reports to be effective-Olanzapine, Fluoxetine, Depakote, Klonopin, Omeprazole, Norvasc. Aftercare planning 02/07: Continue current management and treatment plan. 02/08: Continue current management and treatment plan. 02/10: Continue tx Reason for continued inpatient stay Substantial Risk for: rapid decompensation Time Spent With Patient Time: Total time managing care of this patient today ____ minutes.
[2024-02-11 20:00] VITALS: BP 136/84; PULSE 93; TEMP 36.3; O2SAT 98
[2024-02-11] MEDS: traZODone HCL 50 MG TABLET PO (20:52)
[2024-02-11] MEDS: Divalproex Sodium ER 500 MG TAB.ER.24H 1000 MG PO (20:53)
[2024-02-12] MEDS: Omeprazole 20 MG CAPSULE.DR PO (07:02)
[2024-02-12 08:57] VITALS: BP 134/78
[2024-02-12] MEDS: Thiamine HCL 100 MG TABLET PO (08:57)
[2024-02-12] MEDS: amLODIPine Besylate 5 MG TABLET PO (08:57)
[2024-02-12] MEDS: FLUoxetine HCl 10 MG CAPSULE PO (08:57)
[2024-02-12] MEDS: OLANZapine 7.5 MG TABLET 15 MG PO ×2 (08:57→20:42)
[2024-02-12] MEDS: clonazePAM 1 MG TABLET PO ×2 (08:57→20:42)
[2024-02-12] MEDS: Multivitamin TABLET 1 TAB PO (08:57)
[2024-02-12] MEDS: Folic Acid 1 MG TABLET PO (08:57)
--- NOTE | 2024-02-12 16:53 | P.PNPSI_ITS ---
Subjective Subjective Date of Service: 02/12/24 Reason For Visit: schizophrenia Subjective Notes: Conditional Voluntary Healthcare Proxy: No Guardianship: No Medical Problems Affecting Mental Status: No Interim History: Tolerating recent increases of medications. Denies issues/questions. Isolative, quiet, responsive when approached. Planning to discharge 04/15/23. Medication Compliance: Yes Side effects from medications: No Attending Groups: No Review of Systems Acute medical concerns: No Review of Systems Review of Systems Yes all other systems are reviewed and are negative (denies) Mental Status Exam Mental Status Exam Patient Appearance: Appropriate Patient Orientation: Person, Place, Time and Situation Level of Consciousness: Alert Patient Behavior: Appropriate, Talkative, Cooperative and Poor Eye Contact Mood Description: Withdrawn Affect Description: Flat Patient Cognition Impaired: No Ability to Follow Directions: Good Speech Pattern: Spontaneous Speech Memory Description: Episodic Impaired Delusions: Present Perceptual Disturbances: Derealization Thought Process: Rumination Thought Content: positive for Circumstantial, positive for Perseveration and positive for Preoccupation Depressive Symptoms: Increased Anxiety Judgement: Good Diagnostics Vital Signs (24Hr): Vital Signs - 24 hr 02/11/24 20:00 02/12/24 08:57 Temperature 97.3 F Pulse Rate 93 Blood Pressure 136/84 134/78 Pulse Oximetry 98 Oxygen Delivery Method Room Air BMI result Body Mass Index 27.0 Labs 02/05/24 21:28 02/05/24 21:28 Imaging Radiology Impressions: ITS Impressions Hand/Wrist X-Ray 02/06/24 11:11 IMPRESSION: Avulsion fracture of the distal phalanx of the fifth digit as above. Electronically signed by: Berenice Castano MD 02/06/2024 03:38 PM EDT Medications Medications Current Medications Acetaminophen (Acetaminophen 325 Mg Tablet) 650 mg PO Q6H PRN PRN Reason: Headache/Pain Mild Scale (1-3) Last Admin: 02/06/24 16:14 Dose: 650 mg Al Hydroxide/Mg Hydroxide (Magnesium Hydrox/Alum Hydrox 30 Ml Oral.Susp) 30 ml PO Q6H PRN PRN Reason: Heartburn/Nausea Last Admin: 02/07/24 18:26 Dose: 30 ml Amlodipine Besylate (Amlodipine Besylate 5 Mg Tablet) 5 mg PO DAILY [facility]; Protocol Last Admin: 02/12/24 08:57 Dose: 5 mg Clonazepam (Clonazepam 1 Mg Tablet) 1 mg PO BID [facility] Last Admin: 02/12/24 08:57 Dose: 1 mg Divalproex Sodium (Divalproex Sodium Er 500 Mg Tab.Er.24h) 1,000 mg PO BEDTIME [facility] Last Admin: 02/11/24 20:53 Dose: 1,000 mg Fluoxetine HCl (Fluoxetine Hcl 10 Mg Capsule) 10 mg PO DAILY [facility] Last Admin: 02/12/24 08:57 Dose: 10 mg Folic Acid (Folic Acid 1 Mg Tablet) 1 mg PO DAILY [facility] Last Admin: 02/12/24 08:57 Dose: 1 mg Hydroxyzine HCl (Hydroxyzine Hcl 25 Mg Tablet) 25 mg PO Q6H PRN PRN Reason: Anxiety Last Admin: 02/06/24 16:14 Dose: 25 mg Lorazepam (Lorazepam 1 Mg Tablet) 1 mg PO Q4H PRN PRN Reason: ciwa 6-10 Last Admin: 02/08/24 21:16 Dose: 1 mg Lorazepam (Lorazepam 1 Mg Tablet) 2 mg PO Q4H PRN PRN Reason: CIWA 11+ Magnesium Hydroxide (Milk Of Magnesia 30 Ml Oral.Susp) 30 ml PO DAILY PRN PRN Reason: Constipation Multivitamins/Vitamin C (Multivitamin Tablet) 1 tab PO DAILY [facility] Last Admin: 02/12/24 08:57 Dose: 1 tab Nicotine (Nicotine 21 Mg Patch.Td24) 21 mg TRANSDERMA DAILY PRN PRN Reason: nicotine cravings Nicotine Polacrilex (Nicotine Polacrilex 2 Mg Gum) 4 mg BUCCAL Q2H PRN PRN Reason: Nicotine Cravings Olanzapine (Olanzapine 5 Mg Tablet) 5 mg PO TID PRN PRN Reason: agitation, psychosis Olanzapine (Olanzapine 7.5 Mg Tablet) 15 mg PO BID [facility] Last Admin: 02/12/24 08:57 Dose: 15 mg Omeprazole (Omeprazole 20 Mg Capsule.Dr) 20 mg PO DAILY@0630 [facility] Last Admin: 02/12/24 07:02 Dose: 20 mg Ondansetron HCl (Ondansetron Odt 4 Mg Tab.Rapdis) 4 mg TRANSLINGU Q6H PRN PRN Reason: Nausea and Vomiting Last Admin: 02/07/24 18:49 Dose: 4 mg Thiamine HCl (Thiamine Hcl 100 Mg Tablet) 100 mg PO DAILY [facility] Last Admin: 02/12/24 08:57 Dose: 100 mg Trazodone HCl (Trazodone Hcl 50 Mg Tablet) 50 mg PO BEDTIME MRX1 PRN PRN Reason: Insomnia Last Admin: 02/11/24 20:52 Dose: 50 mg Allergies Allergies Allergy/AdvReac Type Severity Reaction Status Date / Time No Known Allergies Allergy Verified 02/05/24 21:18 Assessment & Plan Assessment & Plan (1) Chronic schizophrenia: Status: Acute Code(s): F20.9 - Schizophrenia, unspecified (2) Depression: Status: Acute Code(s): F32.A - Depression, unspecified (3) Suicidal ideation: Status: Acute Code(s): R45.851 - Suicidal ideations (4) Alcohol use disorder: Status: Acute Code(s): F10.90 - Alcohol use, unspecified, uncomplicated (5) Homelessness: Status: Acute Code(s): Z59.00 - Homelessness unspecified (6) PTSD (post-traumatic stress disorder): Status: Acute Code(s): F43.10 - Post-traumatic stress disorder, unspecified (7) Cannabis abuse: Status: Acute Code(s): F12.10 - Cannabis abuse, uncomplicated Plan Schizophrenia, R/O schizoaffective disorder, bipolar type, PTSD, Alcohol and Cannabis use disorder. Plan: Admit, CV, 15 minute checks. Collateral contact if available Diagnostics as needed Encourage milieu participation Re-establish regime pt reports to be effective-Olanzapine, Fluoxetine, Depakote, Klonopin, Omeprazole, Norvasc. Aftercare planning 02/07: Continue current management and treatment plan. 02/08: Continue current management and treatment plan. 02/10: Continue tx 02/01: Continue tx. Pt plans to discharge on 02/13. He will remain local, stay in a hotel and will consider a return to [place] where family is. Reason for continued inpatient stay Substantial Risk for: rapid decompensation Time Spent With Patient Time: Total time managing care of this patient today ____ minutes.
[2024-02-12 19:56] VITALS: BP 134/75; PULSE 98; RESP 16; TEMP 36.9; O2SAT 98
[2024-02-12] MEDS: Divalproex Sodium ER 500 MG TAB.ER.24H 1000 MG PO (20:42)
[2024-02-12] MEDS: traZODone HCL 50 MG TABLET PO (20:42)
[2024-02-13] MEDS: Omeprazole 20 MG CAPSULE.DR PO (08:40)
[2024-02-13 08:47] VITALS: BP 134/79; PULSE 61; TEMP 36.9; O2SAT 98
[2024-02-13] MEDS: Multivitamin TABLET 1 TAB PO (09:37)
[2024-02-13] MEDS: FLUoxetine HCl 10 MG CAPSULE PO (09:37)
[2024-02-13] MEDS: Thiamine HCL 100 MG TABLET PO (09:37)
[2024-02-13] MEDS: OLANZapine 7.5 MG TABLET 15 MG PO ×2 (09:37→22:30)
[2024-02-13] MEDS: Folic Acid 1 MG TABLET PO (09:37)
[2024-02-13] MEDS: amLODIPine Besylate 5 MG TABLET PO (09:38)
[2024-02-13] MEDS: clonazePAM 1 MG TABLET PO ×2 (09:38→22:30)
[2024-02-13 10:02] VITALS: BMI 22.2
--- NOTE | 2024-02-13 16:24 | P.PNPSI_ITS ---
Subjective Subjective Date of Service: 02/13/24 Reason For Visit: schizophrenia Subjective Notes: Conditional Voluntary Healthcare Proxy: No Guardianship: No Medical Problems Affecting Mental Status: No Interim History: Met with pt and Itz PARKER. Discussed with pt if he would remain in pt for further medication titration and would allow family contact. He declines, feels prepared to discharge on 02/13 and is aware he may call or return if needed. He denies medication SE Denies SI/HI/AH/VH, No active sx of gerardo or psychosis. Medication Compliance: Yes Side effects from medications: No Attending Groups: No Review of Systems Acute medical concerns: No Review of Systems Review of Systems Yes all other systems are reviewed and are negative Mental Status Exam Mental Status Exam Patient Appearance: Appropriate Patient Orientation: Person, Place, Time and Situation Level of Consciousness: Alert Patient Behavior: Appropriate, Talkative, Cooperative and Poor Eye Contact Mood Description: Withdrawn Affect Description: Flat Patient Cognition Impaired: No Ability to Follow Directions: Good Speech Pattern: Spontaneous Speech Memory Description: Episodic Impaired Delusions: Present Perceptual Disturbances: Derealization Thought Process: Rumination Thought Content: positive for Circumstantial, positive for Perseveration and positive for Preoccupation Depressive Symptoms: Increased Anxiety Judgement: Good Diagnostics Vital Signs (24Hr): Vital Signs - 24 hr 02/12/24 19:56 02/13/24 08:47 Temperature 98.4 F 98.4 F Pulse Rate 98 61 Respiratory Rate 16 Blood Pressure 134/75 134/79 Pulse Oximetry 98 98 Oxygen Delivery Method Room Air Room Air BMI result Body Mass Index 22.2 Labs 02/05/24 21:28 02/05/24 21:28 Imaging Radiology Impressions: ITS Impressions Hand/Wrist X-Ray 02/06/24 11:11 IMPRESSION: Avulsion fracture of the distal phalanx of the fifth digit as above. Electronically signed by: Berenice Castano MD 02/06/2024 03:38 PM EDT RP Medications Medications Current Medications Acetaminophen (Acetaminophen 325 Mg Tablet) 650 mg PO Q6H PRN PRN Reason: Headache/Pain Mild Scale (1-3) Last Admin: 02/06/24 16:14 Dose: 650 mg Al Hydroxide/Mg Hydroxide (Magnesium Hydrox/Alum Hydrox 30 Ml Oral.Susp) 30 ml PO Q6H PRN PRN Reason: Heartburn/Nausea Last Admin: 02/07/24 18:26 Dose: 30 ml Amlodipine Besylate (Amlodipine Besylate 5 Mg Tablet) 5 mg PO DAILY [facility]; Protocol Last Admin: 02/13/24 09:38 Dose: 5 mg Clonazepam (Clonazepam 1 Mg Tablet) 1 mg PO BID [facility] Last Admin: 02/13/24 09:38 Dose: 1 mg Divalproex Sodium (Divalproex Sodium Er 500 Mg Tab.Er.24h) 1,000 mg PO BEDTIME [facility] Last Admin: 02/12/24 20:42 Dose: 1,000 mg Fluoxetine HCl (Fluoxetine Hcl 10 Mg Capsule) 10 mg PO DAILY [facility] Last Admin: 02/13/24 09:37 Dose: 10 mg Folic Acid (Folic Acid 1 Mg Tablet) 1 mg PO DAILY [facility] Last Admin: 02/13/24 09:37 Dose: 1 mg Hydroxyzine HCl (Hydroxyzine Hcl 25 Mg Tablet) 25 mg PO Q6H PRN PRN Reason: Anxiety Last Admin: 02/06/24 16:14 Dose: 25 mg Lorazepam (Lorazepam 1 Mg Tablet) 1 mg PO Q4H PRN PRN Reason: ciwa 6-10 Last Admin: 02/08/24 21:16 Dose: 1 mg Lorazepam (Lorazepam 1 Mg Tablet) 2 mg PO Q4H PRN PRN Reason: CIWA 11+ Magnesium Hydroxide (Milk Of Magnesia 30 Ml Oral.Susp) 30 ml PO DAILY PRN PRN Reason: Constipation Multivitamins/Vitamin C (Multivitamin Tablet) 1 tab PO DAILY [facility] Last Admin: 02/13/24 09:37 Dose: 1 tab Nicotine (Nicotine 21 Mg Patch.Td24) 21 mg TRANSDERMA DAILY PRN PRN Reason: nicotine cravings Nicotine Polacrilex (Nicotine Polacrilex 2 Mg Gum) 4 mg BUCCAL Q2H PRN PRN Reason: Nicotine Cravings Olanzapine (Olanzapine 5 Mg Tablet) 5 mg PO TID PRN PRN Reason: agitation, psychosis Olanzapine (Olanzapine 7.5 Mg Tablet) 15 mg PO BID [facility] Last Admin: 02/13/24 09:37 Dose: 15 mg Omeprazole (Omeprazole 20 Mg Capsule.Dr) 20 mg PO DAILY@0630 [facility] Last Admin: 02/13/24 08:40 Dose: 20 mg Ondansetron HCl (Ondansetron Odt 4 Mg Tab.Rapdis) 4 mg TRANSLINGU Q6H PRN PRN Reason: Nausea and Vomiting Last Admin: 02/07/24 18:49 Dose: 4 mg Thiamine HCl (Thiamine Hcl 100 Mg Tablet) 100 mg PO DAILY REBECCA Last Admin: 02/13/24 09:37 Dose: 100 mg Trazodone HCl (Trazodone Hcl 50 Mg Tablet) 50 mg PO BEDTIME MRX1 PRN PRN Reason: Insomnia Last Admin: 02/12/24 20:42 Dose: 50 mg Allergies Allergies Allergy/AdvReac Type Severity Reaction Status Date / Time No Known Allergies Allergy Verified 02/05/24 21:18 Assessment & Plan Assessment & Plan (1) Chronic schizophrenia: Status: Acute Code(s): F20.9 - Schizophrenia, unspecified (2) Depression: Status: Acute Code(s): F32.A - Depression, unspecified (3) Suicidal ideation: Status: Acute Code(s): R45.851 - Suicidal ideations (4) Alcohol use disorder: Status: Acute Code(s): F10.90 - Alcohol use, unspecified, uncomplicated (5) Homelessness: Status: Acute Code(s): Z59.00 - Homelessness unspecified (6) PTSD (post-traumatic stress disorder): Status: Acute Code(s): F43.10 - Post-traumatic stress disorder, unspecified (7) Cannabis abuse: Status: Acute Code(s): F12.10 - Cannabis abuse, uncomplicated Plan Schizophrenia, R/O schizoaffective disorder, bipolar type, PTSD, Alcohol and Cannabis use disorder. Plan: Admit, CV, 15 minute checks. Collateral contact if available Diagnostics as needed Encourage milieu participation Re-establish regime pt reports to be effective-Olanzapine, Fluoxetine, Depakote, Klonopin, Omeprazole, Norvasc. Aftercare planning 02/07: Continue current management and treatment plan. 02/08: Continue current management and treatment plan. 02/10: Continue tx 02/11: Valproate Level 02/13. Discharge 02/13. Reason for continued inpatient stay Substantial Risk for: rapid decompensation Time Spent With Patient Time: Total time managing care of this patient today ____ minutes.
[2024-02-13 20:00] VITALS: BP 136/76; PULSE 92; TEMP 37.2; O2SAT 99
[2024-02-13] MEDS: Divalproex Sodium ER 500 MG TAB.ER.24H 1000 MG PO (22:30)
[2024-02-13] MEDS: traZODone HCL 50 MG TABLET PO (22:53)
[2024-02-14] MEDS: Omeprazole 20 MG CAPSULE.DR PO (06:22)
[2024-02-14 07:59] VITALS: BP 114/66; PULSE 84; RESP 18; TEMP 36.9; O2SAT 97
[2024-02-14 09:05] VITALS: BP 114/60
[2024-02-14] MEDS: FLUoxetine HCl 10 MG CAPSULE PO (09:05)
[2024-02-14] MEDS: OLANZapine 7.5 MG TABLET 15 MG PO (09:05)
[2024-02-14] MEDS: Thiamine HCL 100 MG TABLET PO (09:05)
[2024-02-14] MEDS: Multivitamin TABLET 1 TAB PO (09:05)
[2024-02-14] MEDS: amLODIPine Besylate 5 MG TABLET PO (09:05)
[2024-02-14] MEDS: Folic Acid 1 MG TABLET PO (09:06)
[2024-02-14] MEDS: clonazePAM 1 MG TABLET PO (09:07)
--- NOTE | 2024-02-14 12:46 | PM.PSYDC ---
DS: Providers Provider Date of Service: 02/14/24 Date of admission: 02/06/24 13:02 Date of discharge: 02/14/24 Primary care physician: Camille Physician Admitting clinician: Jessica Taylor Attending physician on admission: Vik Cha Attending physician on discharge: Vik Cha Discharging clinician: Jessica Taylor DS: Diagnosis Discharge Diagnosis (1) Chronic schizophrenia: Status: Acute (2) Depression: Status: Acute (3) Suicidal ideation: Status: Acute (4) Alcohol use disorder: Status: Acute (5) Homelessness: Status: Acute (6) PTSD (post-traumatic stress disorder): Status: Acute (7) Cannabis abuse: Status: Acute DS: Medications Discharge Medications Home Medications: Previous Rx's ?Medication ?Instructions ?Recorded amlodipine 5 mg tablet 5 mg PO DAILY #30 tabs 02/13/24 clonazepam 1 mg tablet 1 mg PO BID #14 tabs 02/13/24 divalproex 500 mg tablet,extended 1,000 mg (2 x 500 mg) PO BEDTIME 02/13/24 release 24 hr #60 tabs fluoxetine 10 mg capsule 10 mg PO DAILY #30 caps 02/13/24 folic acid 1 mg tablet 1 mg PO DAILY #30 tabs 02/13/24 multivitamin (Daily-Kevin tablet) 1 tab PO DAILY #30 tabs 02/13/24 omeprazole 20 mg capsule,delayed 20 mg PO DAILY@0630 #30 caps 02/13/24 release thiamine mononitrate (vit B1) 100 100 mg PO DAILY #30 tabs 02/13/24 mg tablet trazodone 50 mg tablet 50 mg PO BEDTIME MRX1 PRN Insomnia 02/13/24 #30 tabs Mental Status Exam Mental Status Exam Patient Appearance: Appropriate Patient Orientation: Person, Place, Time and Situation Level of Consciousness: Alert Patient Behavior: Appropriate, Talkative, Cooperative and Poor Eye Contact Mood Description: Withdrawn Affect Description: Flat Patient Cognition Impaired: No Ability to Follow Directions: Good Speech Pattern: Spontaneous Speech Memory Description: Episodic Impaired Delusions: Present Perceptual Disturbances: Derealization Thought Process: Rumination Thought Content: positive for Circumstantial, positive for Perseveration and positive for Preoccupation Depressive Symptoms: Increased Anxiety Judgement: Good Data Imaging Diagnostic Imaging Impressions Hand/Wrist X-Ray 02/06/24 11:11 IMPRESSION: Avulsion fracture of the distal phalanx of the fifth digit as above. Electronically signed by: Berenice Castano MD 02/06/2024 03:38 PM EDT DS: Summary Hospital Course Hospital Course: Admission to adult psychiatry for exacerbation of schizoaffective disorder, depressed, PTSD, Alcohol, Cannabis use disorder. Pt reports he is from [place]. He had gone to [place] and was traveling back to [place] when he became paranoid, got off his bus to [place] locally, began drinking and cut his hand. Pt reports being off of his medications for ~ 4-5 weeks. Medications were assessed and re-titrated. Pt was quiet on the unit with minimal participation yet was fully compliant with care. He asked for discharge when recompensated, will remain locally for a time while he decides where he will travel next. He is aware he may call/return if needed. Status at Discharge Functional status at discharge: independent ambulation Overall status at discharge: patient is progressing back to baseline Time Spent with Patient Time attestation: Total time managing care of this patient today ____ minutes. Time spent: Less than 30 minutes Discharge Plan Discharge Anticipated Discharge Date/Time: 02/14/24 12:00 Patient Disposition: Xfer Other Discharge Diagnosis: Schizoaffective Disorder with Depression PTSD Alcohol Use Disorder Cannabis Use Disorder Homelessness Referrals: Physician,None [Primary Care Provider] - 1 Week (Please call [facility] and ask if they are accepting new primary care patient) Discharge Medications: New multivitamin [Daily-Kevin] Tablet 1 tab PO DAILY Qty: 30 0RF trazodone 50 mg Tablet 50 mg PO BEDTIME MRX1 PRN (Reason: Insomnia) Qty: 30 0RF clonazepam 1 mg Tablet 1 mg PO BID Qty: 14 3RF amlodipine 5 mg Tablet 5 mg PO DAILY Qty: 30 0RF Protocol: Hold for SBP< HOLD for SBP < : 90 divalproex 500 mg Tablet Extended Release 24 Hr 1,000 mg PO BEDTIME Qty: 60 0RF fluoxetine 10 mg Capsule 10 mg PO DAILY Qty: 30 0RF omeprazole 20 mg Capsule,Delayed Release(Dr/Ec) 20 mg PO DAILY@0630 Qty: 30 0RF folic acid 1 mg Tablet 1 mg PO DAILY Qty: 30 0RF thiamine mononitrate (vit B1) 100 mg Tablet 100 mg PO DAILY Qty: 30 0RF Discharge Orders: Discharge Order (Routine); Ordered 02/14/24 Ordered By: Jessica Taylor Diet: Advance to usual diet Activity on Discharge: As tolerated Stand Alone Forms: Patient Portal Discharge page, Community Support Print Language: Frisian Care Plan Goals: Mood and Behavioral Stabilization Abstinence from Substances and Alcohol Health Concerns: Mood and Behavioral Stabilization Abstinence from Substances and Alcohol Plan of Treatment: Take medications as directed. Call and or return as needed Pt declines referrals at this time He is considering a return to [place], but reports he will be local for a brief time. Assessment: No SI/HI/AH/VH. Declines further care. He is aware he may call and or return if needed. Discharge Date/Time: 02/14/24 11:25
== END 2024-02-14 11:25 | disposition other institution (70) | DRG 885 ==
LOC: HO.ED 02-06 09:05 → HO.PM5 02-06 13:13
PROVIDERS: Admitting Provider Clinical Nurse Specialist Psychiatric/Mental Health, Adult; Emergency Provider Internal Medicine; Visit Provider Clinical Nurse Specialist Psychiatric/Mental Health, Adult
DX: F20.9 Schizophrenia, unspecified (principal); R45.851 Suicidal ideations; Z59.02 Unsheltered homelessness; Y90.6 Blood alcohol level of 120-199 mg/100 ml; F10.90 Alcohol use, unspecified, uncomplicated; F12.10 Cannabis abuse, uncomplicated; F32.A Depression, unspecified; F43.10 Post-traumatic stress disorder, unspecified; Z79.899 Other long term (current) drug therapy
CPT/HCPCS: 36415; 73110; 73130; 80053; 80061; 80307; 81001; 82607; 82746; 83036; 84439; 84443; 85025; 93005; 99285; S9485

== ENCOUNTER → 2024-02-06 08:41 | Outpatient (BNV) | payer MEDICARE, SELFPAY | PROVIDERS: Admitting Provider Clinical Nurse Specialist Psychiatric/Mental Health, Adult; Emergency Provider Internal Medicine; Visit Provider Internal Medicine Cardiovascular Disease | DX: F20.9 Schizophrenia, unspecified (principal) | CPT/HCPCS: 93010 ==

== ENCOUNTER → 2024-02-06 13:02 | Outpatient (BNV) | payer MEDICARE, SELFPAY | PROVIDERS: Admitting Provider Clinical Nurse Specialist Psychiatric/Mental Health, Adult; Emergency Provider Internal Medicine; Visit Provider Psychiatry & Neurology Psychiatry | DX: F20.9 Schizophrenia, unspecified (principal); F32.2 Major depressive disorder, single episode, severe without psychotic features; R45.851 Suicidal ideations; F10.90 Alcohol use, unspecified, uncomplicated | CPT/HCPCS: 99238 ==

== ENCOUNTER → 2024-02-06 13:02 | Outpatient (BNV) | payer MEDICARE, SELFPAY | PROVIDERS: Admitting Provider Clinical Nurse Specialist Psychiatric/Mental Health, Adult; Emergency Provider Internal Medicine; Visit Provider Clinical Nurse Specialist Psychiatric/Mental Health, Adult | DX: F32.2 Major depressive disorder, single episode, severe without psychotic features (principal); F20.9 Schizophrenia, unspecified; R45.851 Suicidal ideations; F10.90 Alcohol use, unspecified, uncomplicated | CPT/HCPCS: 90792; 99231; 99232 ==